=== PATIENT | female | born 1985 | race Caucasian/White ===

== ENCOUNTER 2017-07-31 00:34 | Emergency (ER) | payer MEDICARE | END 2017-07-31 01:40 | disposition home or self-care (01) | LOC: ER 00:34 | DX: Z48.817 Encounter for surgical aftercare following surgery on the skin and subcutaneous tissue (principal); Z48.01 Encounter for change or removal of surgical wound dressing; F17.210 Nicotine dependence, cigarettes, uncomplicated; Z79.899 Other long term (current) drug therapy ==

== ENCOUNTER 2017-07-31 22:30 | Emergency (ER) | payer MEDICARE | END 2017-07-31 23:51 | disposition home or self-care (01) | LOC: ER 22:30 | DX: Z48.817 Encounter for surgical aftercare following surgery on the skin and subcutaneous tissue (principal); Z48.01 Encounter for change or removal of surgical wound dressing; Z79.899 Other long term (current) drug therapy ==